=== PATIENT | male | born 1940 | race Caucasian/White ===

== ENCOUNTER 2018-02-23 08:43 | Outpatient (CLI) | payer MEDICARE, OTHER ==
--- NOTE | 2018-02-23 09:36 | XRAY Report ---
TWO VIEW CHEST: 02/23/2018 CLINICAL INDICATION: Cough. COMPARISON: 11/08/2015. FINDINGS: Frontal and lateral views of the chest demonstrate a normal cardiac silhouette. The lungs remain hyperinflated. No new consolidation, effusion, or pneumothorax is present. IMPRESSION: STABLE COPD. NO EVIDENCE OF ACUTE CARDIOPULMONARY DISEASE. TD: 02/23/2018 09:03
== END 2018-02-23 08:44 | disposition home or self-care (01) ==
LOC: DI 08:43
PROVIDERS: ATTEND Internal Medicine
DX: J44.9 Chronic obstructive pulmonary disease, unspecified (principal); R05 Cough
CPT/HCPCS: 71046

== ENCOUNTER 2024-01-27 18:20 | Emergency (ER) | payer MEDICARE, OTHER ==
--- NOTE | 2024-01-27 19:15 | ED Physician Documentation ---
History of Present Illness - Stated complaint Stated Complaint: ROPER - Chief complaint Chief Complaint: Heent - History obtained from History obtained from: Patient, Family - Additonal information Additional information: 83-year-old gentleman presents with a rash that he noticed today on the right side of the face. He recently had a dental Infection and was started on amoxicillin 2 days ago and then had a dental extraction yesterday. He noticed the rash today. It is tender, and he has sharp stabbing pains periodically in the right side of the face. He has not had a fever, denies any facial swelling, no difficulty swallowing, no confusion or alteration in mental status, denies any cough or URI symptoms. Review of Systems Constitutional: reports: Reviewed and negative Eyes: reports: Reviewed and negative Ears: reports: Reviewed and negative Nose: reports: Reviewed and negative Throat: reports: Dental pain / toothache Cardiac: reports: Reviewed and negative Respiratory: reports: Reviewed and negative GI: reports: Reviewed and negative : reports: Reviewed and negative Skin: reports: Rash Musculoskeletal: reports: Reviewed and negative Neurologic: reports: Headache Psychiatric: reports: Reviewed and negative Endocrine: reports: Reviewed and negative PD PAST MEDICAL HISTORY - Past Medical History Past Medical History: Yes Cardiovascular: Hypertension Respiratory: None Endocrine/Autoimmune: None GI: Ulcers : Benign prostate hypertrophy HEENT: Macular degeneration Psych: None Musculoskeletal: None Derm: None - Past Surgical History Past Surgical History: Yes General: Colonoscopy HEENT: Tonsil/Adenoidectomy - Present Medications Home Medications: Ambulatory Orders Medication Instructions Recorded Confirmed Aspirin [Reina Chewable Aspirin] 81 mg ORAL DAILY 05/23/14 06/07/14 Tamsulosin HCl [Flomax] 0.4 mg PO DAILY 05/23/14 06/07/14 Niacin [Niaspan] 1,000 mg PO DAILY 05/24/14 06/07/14 [place]-3 Fatty Acids [Fish Oil] 500 mg PO DAILY 05/24/14 06/07/14 valACYclovir [Valtrex] 1,000 mg PO TID #42 tablet 01/27/24 - Allergies Allergies/Adverse Reactions: Allergies Allergy/AdvReac Type Severity Reaction Status Date / Time No Known Drug Allergies Allergy Verified 01/27/24 18:25 - Social History Does the pt smoke?: No Smoking Status: Never smoker Does the pt drink ETOH?: No Does the pt have substance abuse?: No - Immunizations Immunizations are current?: Yes PD ED PE NORMAL - Vitals Vital signs reviewed: Yes - General General: Alert and oriented X 3, No acute distress, Well developed/nourished - HEENT HEENT: Atraumatic, Moist mucous membranes, Pharynx benign, Other (Poor dentition, recent extraction, no gum swelling or visible abscesses. No facial swelling.) - Neck Neck: Supple, no meningeal sign, No adenopathy - Cardiac Cardiac: RRR, No murmur - Respiratory Respiratory: No respiratory distress, Clear bilaterally - Derm Derm: Normal color, Warm and dry, Other (patches of redness w/ clusters of vesicles on the right side of the scalp into the right neck. a small cluster of vesicls on the right lower cheek. tendernss to touch of the scalp. no orbital in volvement.) - Neuro Neuro: Alert and oriented X 3 Eye Opening: Spontaneous Motor: Obeys Commands Verbal: Oriented GCS Score: 15 Results - Vitals Vitals: Vital Signs - 24 hr 01/27/24 18:25 Temperature 36.8 C Heart Rate 80 Respiratory 16 Rate Blood Pressure 160/70 H O2 Saturation 98 Oxygen O2 Source Room air PD Medical Decision Making - ED course Complexity details: considered differential, d/w patient, d/w family ED course: 83-year-old male presented with headache and rash as described in HPI. He recently had a dental extraction and is on amoxicillin with concern for possible allergic reaction however on exam, the patient's rash is more consistent with shingles. He has cluster of vesicles on the right scalp, right cheek and right neck. This does not cross the midline. There is no periorbital involvement. This is very likely shingles and the patient was started on valacyclovir 1 g 3 times daily, first dose given here in the ED, he can continue amoxicillin for hi s dental extraction and take Tylenol and ibuprofen as needed. Return precautions reviewed in detail if any new or worsening symptoms including confusion and alteration of mental status fever, or any periorbital involvement. Departure - Departure Disposition: 01 Home, Self Care Clinical Impression: Shingles Qualifiers: Herpes zoster complications: unspecified herpes zoster complication Qualified Code(s): B02.8 - Zoster with other complications Condition: Good Instructions: ED Shingles Prescriptions: valACYclovir [Valtrex] 1,000 mg PO TID #42 tablet Comments: You have shingles on the right side of your face and scalp, this is what is causing her pain. Please continue to take the antibiotics you are taking for your tooth infection but you will also need to take an antiviral called valacyclovir, to help with your shingles. You can take Tylenol and ibuprofen as well for pain. The rash should improve over the course the next week or so, if it worsens, you develop a fever, confusion, or if there is any involvement of the eye, please return to the ER. Forms: PCP List
[2024-01-27] MEDS: valACYclovir 500 MG TABLET PO SCH (19:24)
[2024-01-27 19:33] VITALS: BP 130/70; O2SAT 100
== END 2024-01-27 19:25 | disposition home or self-care (01) ==
LOC: ED 18:20
DX: B02.8 Zoster with other complications (principal); I10 Essential (primary) hypertension; Z79.82 Long term (current) use of aspirin; Z79.899 Other long term (current) drug therapy
CPT/HCPCS: 99283